=== PATIENT | male | born 1950 | race African-American/Black ===

== ENCOUNTER 2022-05-29 12:14 | Emergency (ER) | payer MEDICARE, MEDICAID ==
[2022-05-29 12:38] LABS: #Basophils 0.2 thou/uL (0.0-0.2); #Eosinphils 0.1 thou/uL (0.0-0.7); #Lymphocytes 1.3 thou/uL (1.20-3.40); #Monocytes 0.4 thou/uL (0.11-0.59); #Neutrophils 7.1 thou/uL (1.40-6.50); %Basophils 2.3 % (0.0-1.0); %Eosinophils 1.4 % (0.0-10.0); %Monocytes 4.5 % (0.0-10.0); %Neutrophils 77.8 % (42.0-75.0); Hemoglobin 15.5 g/dL (14.0-18.0); Mean Corpuscular HGB CONC 34.2 g/dL (32.0-36.0); Mean Corpuscular Hemoglobin 30.7 pg (27.0-31.0); Mean Corpuscular Volume 89.7 fL (78.0-98.0); Mean Platelet Volume 9.6 fL (7.4-10.4); Platelet Count 180 thou/uL (130-400); Red Blood Cell (RBC) Count 5.04 mill/uL (4.70-6.10); White Blood Cell (WBC) Count 9.1 thou/uL (4.8-10.8)
[2022-05-29 13:00] LABS: INR-International Normal Ratio 1.4; Prothrombin Time 17.7 sec (12.0-14.7)
[2022-05-29 13:03] LABS: Bilirubin Small (Negative); Blood, Urine Negative (Negative); Clarity Slightly Cloudy (Clear); Glucose, Urine (Dipstick) Negative (Negative); Ketone, Urine Trace mg/dL (Negative); Leukocyte Negative (Negative); Nitrite Negative (Negative); Protein, Urine (Dipstick) > or equal to 300 mg/dL (Neg-Trace); pH, Urine 5.5 (5.0-9.0)
[2022-05-29 13:03] LABS: ALT (SGPT) 24 U/L (8-55); AST (SGOT) 27 U/L (5-34); Albumin 3.7 g/dL (3.4-4.8); Alkaline Phosphatase 76 U/L (40-110); Anion Gap 16 mmol/L (10-20); BUN (Urea Nitrogen) 20 mg/dL (8.4-25.7); Bilirubin, Total 0.9 mg/dL (0.2-1.2); Calc. Creatinine Clearance 0 mL/min (70-130); Calcium 8.8 mg/dL (7.8-10.44); Carbon Dioxide 25 mmol/L (23-31); Chloride 100 mmol/L (98-107); Estimated GFR 90; Globulin 3.5 g/dL (2.4-3.5); Glucose 144 mg/dL (83-110); Potassium 4.5 mmol/L (3.5-5.1); Protein, Total 7.2 g/dL (5.8-8.1); Sodium 136 mmol/L (136-145)
[2022-05-29 13:08] LABS: Specific Gravity, Urine 1.024 (1.002-1.036)
[2022-05-29 13:24] LABS: CKMB 2.1 ng/mL (0-6.6)
[2022-05-29 13:28] LABS: RBC/HPF None Seen HPF (0-3); Squamous Epithelial 0-3 HPF (0-3); WBC/HPF 0-3 HPF (0-3)
[2022-05-29 13:29] LABS: Bacteria/HPF Rare-Few HPF (None Seen); Mucous/LPF 1+ LPF (<2+); Renal Epithelial 0-3 HPF (None Seen)
[2022-05-29] MEDS ORDERED: Furosemide 40 MG/4 ML VIAL ONE (13:43)
[2022-05-29 13:56] LABS: SARS-CoV-2 NAA Rapid Test Not Detected (NotDetected)
== END 2022-05-29 14:38 | disposition short-term general hospital (02) ==
LOC: BURERS 12:14
DX: I11.0 Hypertensive heart disease with heart failure (principal); I50.9 Heart failure, unspecified; Z20.822 Contact with and (suspected) exposure to COVID-19; J44.1 Chronic obstructive pulmonary disease with (acute) exacerbation; G40.909 Epilepsy, unspecified, not intractable, without status epilepticus; G47.33 Obstructive sleep apnea (adult) (pediatric); Z79.899 Other long term (current) drug therapy
CPT/HCPCS: 51702; 71045; 80053; 81003; 81015; 82553; 83605; 83880; 84484; 85025; 85610; 85730; 87040; 93005; 94760; 96374; J1940; J7620; U0002

== ENCOUNTER 2022-10-20 09:48 | Emergency (ER) | payer MEDICARE, MEDICAID ==
[2022-10-20 11:03] LABS: #Eosinphils 0.2 thou/uL (0.0-0.7); #Monocytes 0.4 thou/uL (0.11-0.59); #Neutrophils 3.2 thou/uL (1.40-6.50); %Basophils 0.7 % (0.0-1.0); %Eosinophils 3.2 % (0.0-10.0); %Lymphocytes 20.6 % (21.0-51.0); %Monocytes 7.8 % (0.0-10.0); %Neutrophils 67.7 % (42.0-75.0); Hemoglobin 14.2 g/dL (14.0-18.0); Mean Corpuscular HGB CONC 33.3 g/dL (32.0-36.0); Mean Corpuscular Volume 93.1 fl (78.0-98.0); Mean Platelet Volume 11.1 fL (7.4-10.4); Platelet Count 129 10x3/uL (130-400); RBC Distribution Width 13.9 % (11.5-14.5); Red Blood Cell (RBC) Count 4.58 mill/uL (4.70-6.10); White Blood Cell (WBC) Count 4.8 10x3/uL (4.8-10.8)
[2022-10-20 11:27] LABS: ALT (SGPT) 11 U/L (8-55); AST (SGOT) 14 U/L (5-34); Albumin 3.2 g/dL (3.4-4.8); Alkaline Phosphatase 65 U/L (40-110); Anion Gap 17 mmol/L (10-20); BUN (Urea Nitrogen) 18 mg/dL (8.4-25.7); Bilirubin, Total 1.5 mg/dL (0.2-1.2); Calc. Creatinine Clearance 0 mL/min (70-130); Calcium 8.5 mg/dL (7.8-10.44); Carbon Dioxide 24 mmol/L (23-31); Chloride 103 mmol/L (98-107); Estimated GFR 93; Globulin 3.5 g/dL (2.4-3.5); Glucose 91 mg/dL (83-110); Potassium 3.9 mmol/L (3.5-5.1); Protein, Total 6.7 g/dL (5.8-8.1); Sodium 140 mmol/L (136-145)
[2022-10-20 11:45] LABS: CKMB 1.2 ng/mL (0-6.6)
[2022-10-20] MEDS ORDERED: Aspirin Chewable 81 MG TAB ONE (12:57)
[2022-10-20] MEDS ORDERED: Enoxaparin Sodium 100 MG/ML SYRINGE ONE (13:05)
[2022-10-20] MEDS ORDERED: Albuterol Sulfate 1.25 MG/3 ML NEB ONE (19:12)
[2022-10-20] MEDS ORDERED: Furosemide 100 MG/10 ML VIAL ONE (19:12)
[2022-10-20] MEDS ORDERED: Carvedilol 6.25 MG TAB PO SCH (21:30)
[2022-10-20] MEDS ORDERED: Lisinopril 20 MG TAB PO SCH (21:30)
[2022-10-20] MEDS ORDERED: OXcarbazepine 150 MG TAB PO SCH (21:30)
[2022-10-20] MEDS ORDERED: Montelukast Sodium 10 mg Tablet PO SCH (21:30)
[2022-10-21 08:50] LABS: #Basophils 0.1 thou/uL (0.0-0.2); #Eosinphils 0.3 thou/uL (0.0-0.7); #Lymphocytes 0.8 thou/uL (1.20-3.40); #Monocytes 0.5 thou/uL (0.11-0.59); %Basophils 2.2 % (0.0-1.0); %Eosinophils 8.4 % (0.0-10.0); %Lymphocytes 21.7 % (21.0-51.0); %Monocytes 14.4 % (0.0-10.0); %Neutrophils 53.3 % (42.0-75.0); Hemoglobin 13.6 g/dL (14.0-18.0); Mean Corpuscular Hemoglobin 30.4 pg (27.0-31.0); Mean Corpuscular Volume 92.2 fl (78.0-98.0); Mean Platelet Volume 9.2 fL (7.4-10.4); Platelet Count 132 10x3/uL (130-400); Red Blood Cell (RBC) Count 4.48 mill/uL (4.70-6.10); White Blood Cell (WBC) Count 3.8 10x3/uL (4.8-10.8)
[2022-10-21 09:08] LABS: ALT (SGPT) 9 U/L (8-55); AST (SGOT) 13 U/L (5-34); Albumin 2.9 g/dL (3.4-4.8); Alkaline Phosphatase 56 U/L (40-110); Anion Gap 16 mmol/L (10-20); BUN (Urea Nitrogen) 16 mg/dL (8.4-25.7); Bilirubin, Total 1.2 mg/dL (0.2-1.2); Calc. Creatinine Clearance 0 mL/min (70-130); Calcium 8.1 mg/dL (7.8-10.44); Carbon Dioxide 27 mmol/L (23-31); Chloride 104 mmol/L (98-107); Estimated GFR 95; Globulin 3.1 g/dL (2.4-3.5); Glucose 72 mg/dL (83-110); Potassium 3.6 mmol/L (3.5-5.1); Sodium 143 mmol/L (136-145)
[2022-10-21] MEDS ORDERED: Furosemide 40 MG/4 ML VIAL ONE (10:40)
[2022-10-21] MEDS ORDERED: Carvedilol 6.25 MG TAB ONE (10:40)
[2022-10-21] MEDS ORDERED: OXcarbazepine 150 MG TAB PO SCH (11:00)
== END 2022-10-21 15:30 | disposition short-term general hospital (02) ==
LOC: BURERS 09:48
DX: I11.0 Hypertensive heart disease with heart failure (principal); I50.9 Heart failure, unspecified; J44.9 Chronic obstructive pulmonary disease, unspecified; Z79.899 Other long term (current) drug therapy; R77.8 Other specified abnormalities of plasma proteins
CPT/HCPCS: 36415; 71045; 80053; 82553; 83880; 84484; 85025; 93005; 96372; 96374; 96376; J1650; J1940; J7620

== ENCOUNTER 2022-10-26 16:36 | Inpatient (IN) | payer MEDICARE, MEDICAID ==
[2022-10-26] MEDS ORDERED: Chlorhexidine Gluconate 15 ML UDCUP SSP SCH (22:45)
[2022-10-26] MEDS ORDERED: OXcarbazepine 150 MG TAB PO SCH (23:00)
[2022-10-26] MEDS ORDERED: Montelukast Sodium 10 mg Tablet PO SCH (23:00)
[2022-10-26] MEDS ORDERED: Triamcinolone 0.1% Cream 15 GM TUBE TOP SCH (23:00)
[2022-10-26] MEDS ORDERED: diphenhydrAMINE 25 MG CAP PO SCH (23:00)
[2022-10-26] MEDS ORDERED: Loratadine 10 MG TAB PO SCH (23:00)
[2022-10-26] MEDS ORDERED: diphenhydrAMINE 25 MG CAP PO PRN (23:07)
[2022-10-26] MEDS ORDERED: guaiFENesin ER 600 MG TAB PO PRN (23:08)
[2022-10-26] MEDS ORDERED: Ibuprofen 200 MG TAB PO PRN (23:09)
[2022-10-26] MEDS ORDERED: Loperamide HCl 2 MG CAP PO PRN (23:09)
[2022-10-26] MEDS ORDERED: Milk Of Magnesia 30 ML UDCUP PO PRN (23:10)
[2022-10-26] MEDS ORDERED: Acetaminophen 325 MG TAB PO PRN (23:12)
[2022-10-26] MEDS ORDERED: Ketotifen Fumarate 0.025% Ophth Soln 5 ml Bottle EA EYE PRN (23:14)
[2022-10-26] MEDS ORDERED: Pepto Bismol Chew TAB PO PRN (23:14)
[2022-10-26] MEDS ORDERED: Budesonide 0.5 MG/2 ML NEB NEB PRN (23:15)
[2022-10-26] MEDS ORDERED: Senokot S 8.6-50 MG TAB PO PRN (23:17)
[2022-10-26] MEDS ORDERED: Terazosin HCl 5 MG CAP PO SCH (23:30)
[2022-10-27 00:11] VITALS: BMI 17.9
[2022-10-27] MEDS ORDERED: OXcarbazepine 150 MG TAB PO SCH (00:15)
[2022-10-27] MEDS: PHENYLEPHRINE PO SCH ×3 (05:15→21:46)
[2022-10-27] MEDS: [UNRECOGNIZED DRUG - OTHER] PO SCH ×3 (05:15→21:46)
[2022-10-27] MEDS: BROMPHENIRAMINE PO SCH ×3 (05:15→21:46)
[2022-10-27] MEDS: DEXTROMETHORPHAN PO SCH ×3 (05:15→21:46)
[2022-10-27] MEDS: Furosemide 20 MG TAB PO SCH ×2 (08:55→13:25)
[2022-10-27] MEDS ORDERED: Polyethylene Glycol 3350 17 GM Packet PO SCH (09:00)
[2022-10-27] MEDS ORDERED: Simethicone Chewable 80 MG TAB PO SCH (09:00)
[2022-10-27] MEDS ORDERED: [UNRECOGNIZED DRUG - OTHER] TOP SCH (09:00)
[2022-10-27] MEDS: OXcarbazepine 150 MG TAB PO SCH ×2 (09:05→21:41)
[2022-10-27] MEDS: Chlorhexidine Gluconate 15 ML UDCUP SSP SCH ×2 (09:07→21:43)
[2022-10-27] MEDS: Cholecalciferol 1,000 UNITS (25 MCG) TAB PO SCH (09:07)
[2022-10-27] MEDS: Fluticasone Propionate Nasal Spray 16 gm Bottle NASAL SCH (09:08)
[2022-10-27] MEDS ORDERED: Docusate 100 MG CAP PO PRN (10:31)
[2022-10-27] MEDS: diphenhydrAMINE 25 MG CAP PO SCH (21:41)
[2022-10-27] MEDS: Montelukast Sodium 10 mg Tablet PO SCH (21:43)
[2022-10-27] MEDS: Loratadine 10 MG TAB PO SCH (21:43)
[2022-10-27] MEDS: Terazosin HCl 5 MG CAP PO SCH (21:44)
[2022-10-28] MEDS: DEXTROMETHORPHAN PO SCH ×2 (05:59→16:05)
[2022-10-28] MEDS: BROMPHENIRAMINE PO SCH ×2 (05:59→16:05)
[2022-10-28] MEDS: [UNRECOGNIZED DRUG - OTHER] PO SCH ×2 (05:59→16:05)
[2022-10-28] MEDS: PHENYLEPHRINE PO SCH ×2 (05:59→16:05)
[2022-10-28] MEDS: Cholecalciferol 1,000 UNITS (25 MCG) TAB PO SCH (09:22)
[2022-10-28] MEDS: OXcarbazepine 150 MG TAB PO SCH ×2 (09:22→21:02)
[2022-10-28] MEDS: Furosemide 20 MG TAB PO SCH ×2 (09:22→15:45)
[2022-10-28] MEDS: Fluticasone Propionate Nasal Spray 16 gm Bottle NASAL SCH (09:23)
[2022-10-28] MEDS: Chlorhexidine Gluconate 15 ML UDCUP SSP SCH ×2 (09:23→21:02)
[2022-10-28] MEDS: diphenhydrAMINE 25 MG CAP PO SCH (21:03)
[2022-10-28] MEDS: Montelukast Sodium 10 mg Tablet PO SCH (21:04)
[2022-10-28] MEDS: Loratadine 10 MG TAB PO SCH (21:04)
[2022-10-28] MEDS: Terazosin HCl 5 MG CAP PO SCH (21:04)
[2022-10-29] MEDS: Cholecalciferol 1,000 UNITS (25 MCG) TAB PO SCH (09:56)
[2022-10-29] MEDS: OXcarbazepine 150 MG TAB PO SCH ×2 (09:56→21:16)
[2022-10-29] MEDS: Furosemide 20 MG TAB PO SCH ×2 (09:56→14:31)
[2022-10-29] MEDS: Fluticasone Propionate Nasal Spray 16 gm Bottle NASAL SCH (09:57)
[2022-10-29] MEDS: Chlorhexidine Gluconate 15 ML UDCUP SSP SCH ×2 (09:58→21:16)
[2022-10-29 10:56] LABS: SARS-CoV-2 NAA Rapid Test Not Detected (NotDetected)
[2022-10-29] MEDS: Loratadine 10 MG TAB PO SCH (21:17)
[2022-10-29] MEDS: diphenhydrAMINE 25 MG CAP PO SCH (21:17)
[2022-10-29] MEDS: Montelukast Sodium 10 mg Tablet PO SCH (21:17)
[2022-10-29] MEDS: Terazosin HCl 5 MG CAP PO SCH (21:18)
[2022-10-30] MEDS: Furosemide 20 MG TAB PO SCH ×2 (09:33→14:48)
[2022-10-30] MEDS: Cholecalciferol 1,000 UNITS (25 MCG) TAB PO SCH (09:33)
[2022-10-30] MEDS: Fluticasone Propionate Nasal Spray 16 gm Bottle NASAL SCH (09:34)
[2022-10-30] MEDS: Chlorhexidine Gluconate 15 ML UDCUP SSP SCH ×2 (09:34→20:44)
[2022-10-30] MEDS: OXcarbazepine 150 MG TAB PO SCH ×2 (09:34→20:46)
[2022-10-30] MEDS: Loratadine 10 MG TAB PO SCH (20:48)
[2022-10-30] MEDS: Montelukast Sodium 10 mg Tablet PO SCH (20:49)
[2022-10-30] MEDS: diphenhydrAMINE 25 MG CAP PO SCH (20:49)
[2022-10-30] MEDS: Terazosin HCl 5 MG CAP PO SCH (20:51)
[2022-10-30] MEDS: BROMPHENIRAMINE PO PRN (20:56)
[2022-10-30] MEDS: [UNRECOGNIZED DRUG - OTHER] PO PRN (20:56)
[2022-10-30] MEDS: PHENYLEPHRINE PO PRN (20:56)
[2022-10-30] MEDS: DEXTROMETHORPHAN PO PRN (20:56)
[2022-10-31] MEDS: OXcarbazepine 150 MG TAB PO SCH ×2 (09:55→21:38)
[2022-10-31] MEDS: Cholecalciferol 1,000 UNITS (25 MCG) TAB PO SCH (09:56)
[2022-10-31] MEDS: Furosemide 20 MG TAB PO SCH ×2 (09:56→15:31)
[2022-10-31] MEDS: Chlorhexidine Gluconate 15 ML UDCUP SSP SCH ×2 (09:56→21:37)
[2022-10-31] MEDS: Fluticasone Propionate Nasal Spray 16 gm Bottle NASAL SCH (09:57)
[2022-10-31] MEDS: diphenhydrAMINE 25 MG CAP PO SCH (21:38)
[2022-10-31] MEDS: Montelukast Sodium 10 mg Tablet PO SCH (21:39)
[2022-10-31] MEDS: Terazosin HCl 5 MG CAP PO SCH (21:39)
[2022-10-31] MEDS: Loratadine 10 MG TAB PO SCH (21:39)
[2022-11-01] MEDS: OXcarbazepine 300 MG TAB PO SCH ×2 (10:55→21:11)
[2022-11-01] MEDS: Cholecalciferol 1,000 UNITS (25 MCG) TAB PO SCH (10:55)
[2022-11-01] MEDS: Furosemide 20 MG TAB PO SCH ×2 (10:55→14:32)
[2022-11-01] MEDS: Chlorhexidine Gluconate 15 ML UDCUP SSP SCH ×2 (10:56→21:11)
[2022-11-01] MEDS: Fluticasone Propionate Nasal Spray 16 gm Bottle NASAL SCH (10:56)
[2022-11-01] MEDS: OXcarbazepine 150 MG TAB PO SCH (12:24)
[2022-11-01] MEDS: Loratadine 10 MG TAB PO SCH (21:10)
[2022-11-01] MEDS: Montelukast Sodium 10 mg Tablet PO SCH (21:10)
[2022-11-01] MEDS: Terazosin HCl 5 MG CAP PO SCH (21:11)
[2022-11-01] MEDS: diphenhydrAMINE 25 MG CAP PO SCH (21:11)
[2022-11-02] MEDS: Chlorhexidine Gluconate 15 ML UDCUP SSP SCH ×2 (08:45→20:34)
[2022-11-02] MEDS: OXcarbazepine 300 MG TAB PO SCH ×2 (08:46→20:35)
[2022-11-02] MEDS: Furosemide 20 MG TAB PO SCH ×2 (08:47→13:36)
[2022-11-02] MEDS: [UNRECOGNIZED DRUG - OTHER] PO PRN (08:48)
[2022-11-02] MEDS: DEXTROMETHORPHAN PO PRN (08:48)
[2022-11-02] MEDS: Cholecalciferol 1,000 UNITS (25 MCG) TAB PO SCH (08:48)
[2022-11-02] MEDS: BROMPHENIRAMINE PO PRN (08:48)
[2022-11-02] MEDS: PHENYLEPHRINE PO PRN (08:48)
[2022-11-02] MEDS: AZELASTINE 0.05% EA EYE PRN (08:50)
[2022-11-02] MEDS: Fluticasone Propionate Nasal Spray 16 gm Bottle NASAL SCH (08:54)
[2022-11-02] MEDS: Simethicone Chewable 80 MG TAB PO PRN (11:01)
[2022-11-02] MEDS: diphenhydrAMINE 25 MG CAP PO SCH (20:35)
[2022-11-02] MEDS: Loratadine 10 MG TAB PO SCH (20:35)
[2022-11-02] MEDS: Montelukast Sodium 10 mg Tablet PO SCH (20:35)
[2022-11-02] MEDS: Terazosin HCl 5 MG CAP PO SCH (20:36)
[2022-11-03] MEDS: Chlorhexidine Gluconate 15 ML UDCUP SSP SCH ×2 (10:22→21:46)
[2022-11-03] MEDS: AZELASTINE 0.05% EA EYE PRN (10:22)
[2022-11-03] MEDS: Cholecalciferol 1,000 UNITS (25 MCG) TAB PO SCH (10:23)
[2022-11-03] MEDS: Furosemide 20 MG TAB PO SCH ×2 (10:23→14:31)
[2022-11-03] MEDS: OXcarbazepine 300 MG TAB PO SCH ×2 (10:23→21:46)
[2022-11-03] MEDS: Fluticasone Propionate Nasal Spray 16 gm Bottle NASAL SCH (10:24)
[2022-11-03] MEDS: diphenhydrAMINE 25 MG CAP PO SCH (21:45)
[2022-11-03] MEDS: Loratadine 10 MG TAB PO SCH (21:45)
[2022-11-03] MEDS: Montelukast Sodium 10 mg Tablet PO SCH (21:45)
[2022-11-03] MEDS: Terazosin HCl 5 MG CAP PO SCH (21:47)
[2022-11-04] MEDS: OXcarbazepine 300 MG TAB PO SCH ×2 (10:41→21:22)
[2022-11-04] MEDS: Furosemide 20 MG TAB PO SCH ×2 (10:42→13:54)
[2022-11-04] MEDS: Cholecalciferol 1,000 UNITS (25 MCG) TAB PO SCH (10:42)
[2022-11-04] MEDS: Fluticasone Propionate Nasal Spray 16 gm Bottle NASAL SCH (10:43)
[2022-11-04] MEDS: Chlorhexidine Gluconate 15 ML UDCUP SSP SCH ×2 (10:43→21:19)
[2022-11-04] MEDS: diphenhydrAMINE 25 MG CAP PO SCH (21:19)
[2022-11-04] MEDS: Montelukast Sodium 10 mg Tablet PO SCH (21:20)
[2022-11-04] MEDS: Loratadine 10 MG TAB PO SCH (21:20)
[2022-11-04] MEDS: Terazosin HCl 5 MG CAP PO SCH (21:21)
[2022-11-05] MEDS: Chlorhexidine Gluconate 15 ML UDCUP SSP SCH ×2 (08:22→21:02)
[2022-11-05] MEDS: OXcarbazepine 300 MG TAB PO SCH ×2 (08:22→21:04)
[2022-11-05] MEDS: Furosemide 20 MG TAB PO SCH ×2 (08:22→14:39)
[2022-11-05] MEDS: Cholecalciferol 1,000 UNITS (25 MCG) TAB PO SCH (08:22)
[2022-11-05] MEDS: Fluticasone Propionate Nasal Spray 16 gm Bottle NASAL SCH (08:22)
[2022-11-05] MEDS: Loratadine 10 MG TAB PO SCH (21:03)
[2022-11-05] MEDS: Terazosin HCl 5 MG CAP PO SCH (21:03)
[2022-11-05] MEDS: diphenhydrAMINE 25 MG CAP PO SCH (21:04)
[2022-11-05] MEDS: Montelukast Sodium 10 mg Tablet PO SCH (21:04)
[2022-11-06] MEDS: OXcarbazepine 300 MG TAB PO SCH ×2 (09:07→21:24)
[2022-11-06] MEDS: Cholecalciferol 1,000 UNITS (25 MCG) TAB PO SCH (09:07)
[2022-11-06] MEDS: Furosemide 20 MG TAB PO SCH ×2 (09:07→13:47)
[2022-11-06] MEDS: Fluticasone Propionate Nasal Spray 16 gm Bottle NASAL SCH (09:07)
[2022-11-06] MEDS: Chlorhexidine Gluconate 15 ML UDCUP SSP SCH ×2 (09:07→21:21)
[2022-11-06] MEDS: AZELASTINE 0.05% EA EYE PRN (09:11)
[2022-11-06] MEDS: Simethicone Chewable 80 MG TAB PO PRN (13:47)
[2022-11-06] MEDS: Terazosin HCl 5 MG CAP PO SCH (21:22)
[2022-11-06] MEDS: diphenhydrAMINE 25 MG CAP PO SCH (21:23)
[2022-11-06] MEDS: Montelukast Sodium 10 mg Tablet PO SCH (21:23)
[2022-11-06] MEDS: Loratadine 10 MG TAB PO SCH (21:23)
[2022-11-07] MEDS: Chlorhexidine Gluconate 15 ML UDCUP SSP SCH ×2 (09:08→21:09)
[2022-11-07] MEDS: OXcarbazepine 300 MG TAB PO SCH ×2 (09:09→21:11)
[2022-11-07] MEDS: Furosemide 20 MG TAB PO SCH ×2 (09:09→14:21)
[2022-11-07] MEDS: Cholecalciferol 1,000 UNITS (25 MCG) TAB PO SCH (09:09)
[2022-11-07] MEDS: AZELASTINE 0.05% EA EYE PRN (09:10)
[2022-11-07] MEDS: Fluticasone Propionate Nasal Spray 16 gm Bottle NASAL SCH (09:10)
[2022-11-07] MEDS: diphenhydrAMINE 25 MG CAP PO SCH (21:09)
[2022-11-07] MEDS: Loratadine 10 MG TAB PO SCH (21:10)
[2022-11-07] MEDS: Montelukast Sodium 10 mg Tablet PO SCH (21:10)
[2022-11-07] MEDS: Terazosin HCl 5 MG CAP PO SCH (21:11)
[2022-11-08] MEDS: Chlorhexidine Gluconate 15 ML UDCUP SSP SCH ×2 (09:55→21:18)
[2022-11-08] MEDS: Fluticasone Propionate Nasal Spray 16 gm Bottle NASAL SCH (09:55)
[2022-11-08] MEDS: OXcarbazepine 300 MG TAB PO SCH ×2 (09:56→21:18)
[2022-11-08] MEDS: Cholecalciferol 1,000 UNITS (25 MCG) TAB PO SCH (09:57)
[2022-11-08] MEDS: Furosemide 20 MG TAB PO SCH ×2 (09:57→15:32)
[2022-11-08] MEDS: Simethicone Chewable 80 MG TAB PO PRN (21:18)
[2022-11-08] MEDS: diphenhydrAMINE 25 MG CAP PO SCH (21:18)
[2022-11-08] MEDS: Montelukast Sodium 10 mg Tablet PO SCH (21:18)
[2022-11-08] MEDS: Loratadine 10 MG TAB PO SCH (21:18)
[2022-11-08] MEDS: Terazosin HCl 5 MG CAP PO SCH (21:19)
[2022-11-09] MEDS: OXcarbazepine 300 MG TAB PO SCH ×2 (08:41→21:29)
[2022-11-09] MEDS: Chlorhexidine Gluconate 15 ML UDCUP SSP SCH ×2 (08:41→21:28)
[2022-11-09] MEDS: Fluticasone Propionate Nasal Spray 16 gm Bottle NASAL SCH (08:42)
[2022-11-09] MEDS: Cholecalciferol 1,000 UNITS (25 MCG) TAB PO SCH (08:42)
[2022-11-09] MEDS: Furosemide 20 MG TAB PO SCH ×2 (08:42→14:30)
[2022-11-09] MEDS: AZELASTINE 0.05% EA EYE PRN (08:53)
[2022-11-09] MEDS: diphenhydrAMINE 25 MG CAP PO SCH (21:28)
[2022-11-09] MEDS: Loratadine 10 MG TAB PO SCH (21:28)
[2022-11-09] MEDS: Terazosin HCl 5 MG CAP PO SCH (21:29)
[2022-11-09] MEDS: Montelukast Sodium 10 mg Tablet PO SCH (21:29)
[2022-11-10] MEDS: OXcarbazepine 300 MG TAB PO SCH ×2 (09:40→21:16)
[2022-11-10] MEDS: Cholecalciferol 1,000 UNITS (25 MCG) TAB PO SCH (09:40)
[2022-11-10] MEDS: Furosemide 20 MG TAB PO SCH ×2 (09:40→14:25)
[2022-11-10] MEDS: AZELASTINE 0.05% EA EYE PRN (09:41)
[2022-11-10] MEDS: Fluticasone Propionate Nasal Spray 16 gm Bottle NASAL SCH (09:41)
[2022-11-10] MEDS: Chlorhexidine Gluconate 15 ML UDCUP SSP SCH ×2 (09:41→21:16)
[2022-11-10] MEDS: Loratadine 10 MG TAB PO SCH (21:17)
[2022-11-10] MEDS: diphenhydrAMINE 25 MG CAP PO SCH (21:17)
[2022-11-10] MEDS: Montelukast Sodium 10 mg Tablet PO SCH (21:17)
[2022-11-10] MEDS: Terazosin HCl 5 MG CAP PO SCH (21:17)
[2022-11-11] MEDS: Furosemide 20 MG TAB PO SCH ×2 (09:41→14:39)
[2022-11-11] MEDS: Cholecalciferol 1,000 UNITS (25 MCG) TAB PO SCH (09:41)
[2022-11-11] MEDS: OXcarbazepine 300 MG TAB PO SCH ×2 (09:41→20:52)
[2022-11-11] MEDS: Chlorhexidine Gluconate 15 ML UDCUP SSP SCH ×2 (09:41→20:52)
[2022-11-11] MEDS: Fluticasone Propionate Nasal Spray 16 gm Bottle NASAL SCH (09:42)
[2022-11-11] MEDS: diphenhydrAMINE 25 MG CAP PO SCH (20:52)
[2022-11-11] MEDS: Loratadine 10 MG TAB PO SCH (20:53)
[2022-11-11] MEDS: Montelukast Sodium 10 mg Tablet PO SCH (20:53)
[2022-11-11] MEDS: Terazosin HCl 5 MG CAP PO SCH (20:53)
[2022-11-12] MEDS: OXcarbazepine 300 MG TAB PO SCH ×2 (09:44→20:09)
[2022-11-12] MEDS: Chlorhexidine Gluconate 15 ML UDCUP SSP SCH ×2 (09:44→20:09)
[2022-11-12] MEDS: AZELASTINE 0.05% EA EYE PRN (09:45)
[2022-11-12] MEDS: Furosemide 20 MG TAB PO SCH ×2 (09:45→13:37)
[2022-11-12] MEDS: Cholecalciferol 1,000 UNITS (25 MCG) TAB PO SCH (09:45)
[2022-11-12] MEDS: Fluticasone Propionate Nasal Spray 16 gm Bottle NASAL SCH (09:45)
[2022-11-12] MEDS: Montelukast Sodium 10 mg Tablet PO SCH (20:09)
[2022-11-12] MEDS: diphenhydrAMINE 25 MG CAP PO SCH (20:09)
[2022-11-12] MEDS: Terazosin HCl 5 MG CAP PO SCH (20:09)
[2022-11-12] MEDS: Loratadine 10 MG TAB PO SCH (20:09)
[2022-11-13] MEDS: OXcarbazepine 300 MG TAB PO SCH ×2 (09:45→21:03)
[2022-11-13] MEDS: Furosemide 20 MG TAB PO SCH ×2 (09:45→14:17)
[2022-11-13] MEDS: Chlorhexidine Gluconate 15 ML UDCUP SSP SCH ×2 (09:46→21:06)
[2022-11-13] MEDS: Fluticasone Propionate Nasal Spray 16 gm Bottle NASAL SCH (09:46)
[2022-11-13] MEDS: Cholecalciferol 1,000 UNITS (25 MCG) TAB PO SCH (09:46)
[2022-11-13] MEDS: AZELASTINE 0.05% EA EYE PRN (09:46)
[2022-11-13] MEDS: Montelukast Sodium 10 mg Tablet PO SCH (21:03)
[2022-11-13] MEDS: Loratadine 10 MG TAB PO SCH (21:03)
[2022-11-13] MEDS: diphenhydrAMINE 25 MG CAP PO SCH (21:04)
[2022-11-13] MEDS: Terazosin HCl 5 MG CAP PO SCH (21:05)
[2022-11-14] MEDS: OXcarbazepine 300 MG TAB PO SCH ×2 (09:53→20:40)
[2022-11-14] MEDS: Fluticasone Propionate Nasal Spray 16 gm Bottle NASAL SCH (09:53)
[2022-11-14] MEDS: Chlorhexidine Gluconate 15 ML UDCUP SSP SCH ×2 (09:53→20:40)
[2022-11-14] MEDS: Cholecalciferol 1,000 UNITS (25 MCG) TAB PO SCH (09:54)
[2022-11-14] MEDS: Furosemide 20 MG TAB PO SCH ×2 (09:54→14:45)
[2022-11-14] MEDS ORDERED: EPINEPHrine 1 MG/10 ML Abboject SYRINGE ONE (14:20)
[2022-11-14] MEDS ORDERED: Calcium Chloride 1 GM/10 ML Abboject SYRINGE ONE (14:20)
[2022-11-14] MEDS ORDERED: Magnesium 5 GM/10 ML VIAL ONE (14:20)
[2022-11-14] MEDS ORDERED: Sodium Bicarb 50 MEQ/50 ML Abboject 8.4% SYRINGE ONE (14:20)
[2022-11-14 17:58] VITALS: BP 117/76; TEMP 97.6
[2022-11-14] MEDS: Terazosin HCl 5 MG CAP PO SCH (20:41)
[2022-11-14] MEDS: diphenhydrAMINE 25 MG CAP PO SCH (20:41)
[2022-11-14] MEDS: Loratadine 10 MG TAB PO SCH (20:41)
[2022-11-14] MEDS: Montelukast Sodium 10 mg Tablet PO SCH (20:41)
== END 2022-11-15 03:54 | disposition expired | DRG 948 ==
LOC: BURMED 19:45
PROVIDERS: ADMIT Family Medicine; ATTEND Family Medicine
DX: R53.1 Weakness (principal); I50.22 Chronic systolic (congestive) heart failure; Z20.822 Contact with and (suspected) exposure to COVID-19; F79 Unspecified intellectual disabilities; I11.0 Hypertensive heart disease with heart failure; J44.9 Chronic obstructive pulmonary disease, unspecified; G47.33 Obstructive sleep apnea (adult) (pediatric); J45.20 Mild intermittent asthma, uncomplicated; G40.909 Epilepsy, unspecified, not intractable, without status epilepticus; Z79.899 Other long term (current) drug therapy
CPT/HCPCS: 87811; J0171; J3475; J7611; U0002